=== PATIENT | female | born 1990 | race Caucasian/White ===

== ENCOUNTER 2020-05-17 13:56 | Emergency (ER) | payer MEDICAID ==
[~2020-05-17] VITALS: Ht 162.6 cm; Wt 95.0 kg
[2020-05-17 14:14] VITALS: BP 116/63
[2020-05-17] MEDS ORDERED: NAPR250T6 PO (14:27)
[2020-05-17] MEDS ORDERED: IBUP-1623 PO (14:27)
[2020-05-17] MEDS ORDERED: CEFTRIAXONE 1,000 MG ONE (14:57)
[2020-05-17] MEDS ORDERED: CEFTRIAXONE 1,000 MG IM ONE (15:00)
== END 2020-05-17 15:25 | disposition home or self-care (01) ==
LOC: ED 14:31
DX: K04.7 Periapical abscess without sinus (principal); R22.0 Localized swelling, mass and lump, head
CPT/HCPCS: 96372; 99283; J0696

== ENCOUNTER 2021-06-25 18:04 | Emergency (ER) | payer MEDICAID ==
[~2021-06-25] VITALS: Ht 157.5 cm; Wt 82.0 kg
[~2021-06-25 18:04] MED LIST: IBUP-1623 PO; NAPR-872 PO
--- NOTE | 2021-06-25 18:41 | NUR ---
STRAIGHT CATH PERFORMED, UA WALKED TO LAB.
[2021-06-25 18:48] LABS: MICROSCOPIC NOT IND
--- NOTE | 2021-06-25 18:49 | NUR ---
US AT BEDSIDE
[2021-06-25 19:02] LABS: BASOPHILS % (AUTO) 1 % (0-1); EOSINOPHILS % (AUTO) 1 % (1-7); LYMPHOCYTES % (AUTO) 33 % (22-44); MEAN CORPUSCULAR HEMOGLOBIN 29.3 pg (27.0-34.8); MEAN CORPUSCULAR HGB CONC 34.3 g/dL (32.4-35.8); MEAN PLATELET VOLUME 7.3 fL (7.4-10.4); MONOCYTES % (AUTO) 11 % (2-9); NEUTROPHILS % (AUTO) 55 % (42-75); PLATELET COUNT 296 x10^3/uL (130-400); RED BLOOD COUNT 4.26 x10^6/uL (3.82-5.3); RED CELL DISTRIBUTION WIDTH 13.8 % (9.6-15.2)
[2021-06-25] MEDS ORDERED: LORazepam 2 MG/ML, 1ML ONE (19:03)
[2021-06-25 19:06] LABS: ALBUMIN 3.3 g/dL (3.4-5.0); ANION GAP 5 mmol/L (5-15); CALCIUM 8.7 mg/dL (8.5-10.1); CHLORIDE 108 mmol/L (98-107); CREATININE 0.69 mg/dL (0.55-1.02)
[2021-06-25 22:00] VITALS: BP 111/62
== END 2021-06-25 22:47 ==
LOC: ED 18:30
DX: O03.4 Incomplete spontaneous abortion without complication (principal); Z87.891 Personal history of nicotine dependence
CPT/HCPCS: 36415; 76830; 80048; 81003; 82040; 84702; 85025; 86901; 99285